=== PATIENT | male | born 1990 | race Caucasian/White ===

== ENCOUNTER 2017-09-19 09:11 | Day surgery (SDC) | payer BC, OTHER ==
--- NOTE | 2017-09-19 09:47 | EDM.PDOC ---
ED HPI GENERAL MEDICAL PROBLEM - General Chief Complaint: Abdominal Pain Stated Complaint: HERNIA SENT BY WASTA Time Seen by Provider: 09/19/17 09:45 Source of Information: Reports: Patient History Limitations: Reports: No Limitations - History of Present Illness INITIAL COMMENTS - FREE TEXT/NARRATIVE: 27-year-old male presents presents to the ED with persistent abdominal pain that started 3 days ago. States is getting worse. He was seen to the walk-in clinic at [facility] last evening and an ultrasound of his umbilicus was performed. Addended identified tissue incarcerated within an umbilical hernia. is no previous abdominal surgeries. He was thus sent to the ED for further evaluation of possible incarcerated tissue in the hernia. He has no nausea or vomiting. States him putting this morning only. Bowel function has been normal without any blood. He is otherwise in good health. Onset: Gradual Onset Date: 09/17/17 Duration: Hour(s): Location: Reports: Abdomen (Umbilicus superior aspect) Quality: Reports: Ache, Sharp, Stabbing, Other Severity: Moderate (Worsens when he stands fully erect. 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 Denies : Bloody Stool, Hematemesis, Hematochezia, Nausea, Stool Incontinence, Vomiting : Reports: No Symptoms Musculoskeletal: Reports: No Symptoms Skin: Reports: No Symptoms Neurological: Reports: No Symptoms Psychiatric: Reports: No Symptoms Hematologic/Lymphatic: Reports: No Symptoms Immunologic: Reports: No Symptoms ED EXAM, GI/ABD - Physical Exam Exam: See Below Exam Limited By: No Limitations General Appearance: Alert, WD/WN, No Apparent Distress Eyes: Bilateral: Normal Appearance Head: Atraumatic, Normocephalic Neck: Normal Inspection, Supple, Non-Tender, Full Range of Motion. No: Lymphadenopathy (L), Lymphadenopathy (R) Respiratory/Chest: No Respiratory Distress, Lungs Clear, Normal Breath Sounds Cardiovascular: Normal Peripheral Pulses, Regular Rate, Rhythm, No Edema, No Murmur GI/Abdominal Exam: Normal Bowel Sounds, Soft, Tender (Tenderness to the superior aspect of the umbilicus. No palpable mass but painful to cough.) (Male) Exam: Hernia (Appears to have a umbilical hernia superiorly.) Back Exam: Normal Inspection, Full Range of Motion. No: CVA Tenderness (L), CVA Tenderness (R) Extremities: Normal Inspection, Normal Range of Motion, Non-Tender, No Pedal Edema Neurological: Alert, Oriented, CN II-XII Intact, Normal Cognition Psychiatric: Normal Affect, Normal Mood Skin Exam: Warm, Dry, Intact, Normal Color Course - Vital Signs Last Recorded V/S: Last Vital Signs Temp 36.9 C 09/19/17 09:20 Pulse 78 09/19/17 09:20 Resp 18 09/19/17 09:20 BP 137/77 09/19/17 09:20 Pulse Ox 100 09/19/17 09:20 - Orders/Labs/Meds Orders: Active Orders 24 hr Category Date Time Status Admission Status [Patient Status] [ADT] Routine ADT 09/19/17 12:16 Active Patient to Empty Bladder [RC] ASDIRECTED Care 09/19/17 12:19 Active Verify Patient Consent Obtain [RC] ASDIRECTED Care 09/19/17 12:19 Active Nothing Per Oral Diet [DIET] Diet 09/19/17 Lunch Active Sodium Chloride 0.9% [Normal Saline] 1,000 ml Med 09/19/17 10:00 Active IV ASDIRECTED Sodium Chloride 0.9% [Normal Saline] 1,000 ml Med 09/19/17 12:30 Active IV ASDIRECTED Sodium Chloride 0.9% [Saline Flush] Med 09/19/17 09:56 Active 10 ml FLUSH ONETIME PRN cefOXitin [Mefoxin in Dextrose,Iso-Osm 1 GM/50 ML] 1 gm Med 09/19/17 12:19 Active Premix Bag 1 bag IV ONETIME Schedule Procedure [COMM] Stat Oth 09/19/17 12:16 Ordered Resuscitation Status Routine Resus Stat 09/19/17 12:19 Ordered Medication Orders Sodium Chloride (Normal Saline) 1,000 mls @ 125 mls/hr IV ASDIRECTED TAIWO Last Admin: 09/19/17 10:21 Dose: 125 mls/hr Cefoxitin Sodium 1 gm/ Premix 50 mls @ 100 mls/hr IV ONETIME ONE Stop: 09/19/17 12:48 Sodium Chloride (Normal Saline) 1,000 mls @ 125 mls/hr IV ASDIRECTED TAIWO Sodium Chloride (Saline Flush) 10 ml FLUSH ONETIME PRN PRN Reason: IV FLUSH Last Admin: 09/19/17 11:17 Dose: 10 ml Admin: 09/19/17 10:29 Dose: 10 ml Labs: Laboratory Tests 09/19/17 09/19/17 09/19/17 Range/Units 10:26 10:26 10:26 WBC 7.70 (4.23-9.07) K/mm3 RBC 5.99 (4.63-6.08) M/mm3 Hgb 16.6 (13.7-17.5) gm/L Hct 48.8 (40.1-51.0) % MCV 81.5 (79.0-92.2) fl MCH 27.7 (25.7-32.2) pg MCHC 34.0 (32.2-35.5) g/dl RDW Std Deviation 39.9 (35.1-43.9) fL Plt Count 260 (163-337) K/mm3 MPV 9.5 (9.4-12.3) fl Neutrophils % (Manual) 55 (40-60) % Band Neutrophils % 0 (0-10) % Lymphocytes % (Manual) 40 (20-40) % Atypical Lymphs % 0 % Monocytes % (Manual) 4 (2-10) % Eosinophils % (Manual) 1 (0.8-7.0) % Basophils % (Manual) 0 L (0.2-1.2) Platelet Estimate Adequate RBC Morph Comment Normal Sodium 140 (136-145) mEq/L Potassium 4.3 (3.5-5.1) mEq/L Chloride 103 (98-107) mEq/L Carbon Dioxide 28 (21-32) mEq/L Anion Gap 13.3 (5-15) BUN 22 H (7-18) mg/dL Creatinine 1.0 (0.7-1.3) mg/dL Est Cr Clr Drug Dosing 120.27 mL/min Estimated GFR (MDRD) > 60 (>60) mL/min BUN/Creatinine Ratio 22.0 H (14-18) Glucose 98 (74-106) mg/dL Lactic Acid 1.3 (0.4-2.0) mmol/L Calcium 9.4 (8.5-10.1) mg/dL Total Bilirubin 0.6 (0.2-1.0) mg/dL AST 22 (15-37) U/L ALT 49 (16-63) U/L Alkaline Phosphatase 57 (46-116) U/L C-Reactive Protein < 0.2 (<1.0) mg/dL Total Protein 8.0 (6.4-8.2) g/dl Albumin 4.4 (3.4-5.0) g/dl Globulin 3.6 gm/dL Albumin/Globulin Ratio 1.2 (1-2) Amylase 42 (25-115) U/L Meds: Medications Generic Name Dose Route Start Last Admin Trade Name Freq PRN Reason Stop Dose Admin Sodium Chloride 1,000 mls @ 125 mls/hr 09/19/17 10:00 09/19/17 10:21 Normal Saline IV 125 mls/hr ASDIRECTED TAIWO Administration Cefoxitin Sodium 1 gm/ Premix 50 mls @ 100 mls/hr 09/19/17 12:19 IV 09/19/17 12:48 ONETIME ONE Sodium Chloride 1,000 mls @ 125 mls/hr 09/19/17 12:30 Normal Saline IV ASDIRECTED TAIWO Sodium Chloride 10 ml 09/19/17 09:56 09/19/17 11:17 Saline Flush FLUSH 10 ml ONETIME PRN Administration IV FLUSH Discontinued Medications Generic Name Dose Route Start Last Admin Trade Name Melissa PRN Reason Stop Dose Admin Diatrizoate Meglum/Diatrizoate Sod 90 ml 09/19/17 09:56 09/19/17 11:17 Gastrografin 37% PO 09/19/17 09:57 90 ml ONETIME ONE Administration Iopamidol 150 ml 09/19/17 09:56 09/19/17 11:17 Isovue-300 (61%) IVPUSH 09/19/17 09:57 125 ml ONETIME ONE Administration - Radiology Interpretation Free Text/Narrative:: 27-year-old male presents to the ED with persistent umbilical pain for the last 2 and half days. Hurts to cough hurts to stretch in certain movements cause pain. He had ultrasound done to the [facility] walk-in side last night and it revealed tissue incarcerated within a umbilical hernia. He sent to the ED for further evaluation this morning as to whether not this could be bowel within his abdominal wall. He is very tender in the superior aspect of his umbilicus. No large masses appreciated. His appetite is good and his bowel function is normal. Offered him pain medicine he felt he did not need any at this time. Plan will be CT of the abdomen and pelvis with oral and IV contrast to identify what may be incarcerated in umbilical hernia. Routine preoperative labs done just in case he needs to go to the OR. - Re-Assessments/Exams Free Text/Narrative Re-Assessment/Exam: 09/19/17 11:45: CT of the abdomen can reveals a fatty incarcerated umbilical hernia with surrounding inflammatory fluid. This suggests necrosis of fatty tissue. This would be the reason that the pain is actually worsening and set of improving. I will therefore call surgeon Dr. Irwin whom is park recreation manager. Patient is willing to have surgery if deemed necessary. Dr. Irwin is currently in surgery but will see the patient once he is out of the OR. 09/19/17 12:14 Dr. Irwin came by and will see the patient in the the ED in consultation.White count is 7.70 with a 55% neutrophils and 0% band cells. Hemoglobin is 16.6 with hematocrit of 40.8. Chemistry is all normal. BUN is slightly elevated at 22. Glucose is 98. Lactic acid is 1.3. Amylase is 42. C- reactive protein is less than 0.2. Liver function is normal. 09/19/17 12:26 Dr. Irwin plans on taking him to the OR shortly. Departure - Departure Time of Disposition: 12:25 Disposition: DC/Tfer to [facility] Access [facility] Condition: Fair Clinical Impression: Incarcerated umbilical hernia - Discharge Information Referrals: PCP,None [Primary Care Provider] - Forms: ED Department Discharge - My Orders Last 24 Hours: My Active Orders 09/19/17 09:56 Sodium Chloride 0.9% [Saline Flush] 10 ml FLUSH ONETIME PRN 09/19/17 10:00 Sodium Chloride 0.9% [Normal Saline] 1,000 ml IV ASDIRECTED - Assessment/Plan Last 24 Hours: My Active Orders 09/19/17 09:56 Sodium Chloride 0.9% [Saline Flush] 10 ml FLUSH ONETIME PRN 09/19/17 10:00 Sodium Chloride 0.9% [Normal Saline] 1,000 ml IV ASDIRECTED
[2017-09-19] MEDS ORDERED: Diatrizoate Meglumine/Diatrizoate Sodium 37% 120 ML Bottle PO ONE (09:56)
[2017-09-19] MEDS ORDERED: Iopamidol 612 MG/ML 150 ML Bottle IVPUSH ONE (09:56)
[2017-09-19] MEDS ORDERED: Sodium Chloride 0.9% 1,000 ML IV SCH ×2 (10:00→12:30)
[2017-09-19] MEDS: Sodium Chloride 0.9% 10 ML Syringe FLUSH PRN ×2 (10:29→11:17)
--- NOTE | 2017-09-19 11:39 | CT ---
CT abdomen and pelvis Technique: Multiple axial sections were obtained from above the dome of the diaphragm inferiorly through the pubic symphysis. Intravenous and oral contrast was given. Comparison: Prior abdominal x-ray of 02/10/12. Findings: Small portion of the visualized lung bases are clear. Liver shows no focal parenchymal abnormality. Spleen appears within normal limits. Adrenal glands show no nodule. Pancreas is within normal limits. Gallbladder contains no calcified gallstones. Kidneys show no hydronephrosis or mass. Aorta shows no aneurysmal dilatation. Gallbladder contains no calcified gallstones. No retroperitoneal adenopathy or mesenteric abnormalities are seen. Small low-density abnormality is noted at the base of the umbilicus. Uncertain as to etiology but difficult to exclude a small abscess or hematoma. There is a small fat-containing umbilical hernia also being seen. This low-density finding measures about 1.8 cm. No mesenteric abnormalities are seen. No pelvic mass or adenopathy is noted. No free fluid or inflammatory change is seen within the abdomen or within the pelvis. Bone window settings were reviewed which appears within normal limits for the patient's age. Impression: 1. Small fat-containing umbilical hernia. Low-density abnormality at the base of the umbilicus which is of uncertain etiology but difficult to exclude abscess if patient has any infectious symptoms. Umbilical hematoma is also within the differential. 2. No additional abnormality is seen on CT study of the abdomen and pelvis. Diagnostic code #3
[2017-09-19] MEDS ORDERED: cefOXitin 1 GM in Premix Bag 1 BAG IV ONE (12:19)
--- NOTE | 2017-09-19 12:24 | PCM.HP ---
H&P History of Present Illness - General Date of Service: 09/19/17 Admit Problem/Dx: Admission Diagnosis/Problem Admission Diagnosis/Problem Hernia repair Source of Information: Patient History Limitations: Reports: No Limitations - History of Present Illness Initial Comments - Free Text/Narative: 27-year-old male presents with a 2-3 day history of persistent umbilical pain. The pain was worse with activity and increasingly uncomfortable. He presented to the emergency room earlier this morning for evaluation. A CT scan of his abdomen was performed and confirmed the presence of an incarcerated umbilical hernia containing fat. I was asked to see him for surgical consultation. He last ate around 5:30 this morning. Middle Abdomen Pain Score (Numeric/FACES): 5 - Related Data Allergies/Adverse Reactions: Allergies Allergy/AdvReac Type Severity Reaction Status Date / Time No Known Allergies Allergy Verified 09/19/17 09:17 Home Medications: Home Meds . 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.) H&P Review of Systems - Review of Systems: Review Of Systems: See Below Exam - Exam Exam: See Below - Vital Signs Vital Signs: Last Vital Signs Temp 36.9 C 09/19/17 09:20 Pulse 78 09/19/17 09:20 Resp 18 09/19/17 09:20 BP 137/77 09/19/17 09:20 Pulse Ox 100 09/19/17 09:20 Weight: 115.666 kg - Exam General: Alert, Oriented, Cooperative HEENT: EOMI, Hearing Intact Neck: Supple, Trachea Midline Lungs: Normal Respiratory Effort Cardiovascular: Regular Rate, Regular Rhythm GI/Abdominal Exam: Hernia (Umbilical erythema and tenderness to palpation with a palpable indurated herniated portion of fat) (Male) Exam: Deferred Rectal (Males) Exam: Deferred Extremities: Normal Inspection Neuro Extensive - Mental Status: Alert, Oriented x3 Psychiatric: Alert, Normal Affect - Patient Data Lab Results Last 24 hrs: Laboratory Results - last 24 hr 09/19/17 09/19/17 09/19/17 Range/Units 10:26 10:26 10:26 WBC 7.70 (4.23-9.07) K/mm3 RBC 5.99 (4.63-6.08) M/mm3 Hgb 16.6 (13.7-17.5) gm/L Hct 48.8 (40.1-51.0) % MCV 81.5 (79.0-92.2) fl MCH 27.7 (25.7-32.2) pg MCHC 34.0 (32.2-35.5) g/dl RDW Std Deviation 39.9 (35.1-43.9) fL Plt Count 260 (163-337) K/mm3 MPV 9.5 (9.4-12.3) fl Neutrophils % (Manual) 55 (40-60) % Band Neutrophils % 0 (0-10) % Lymphocytes % (Manual) 40 (20-40) % Atypical Lymphs % 0 % Monocytes % (Manual) 4 (2-10) % Eosinophils % (Manual) 1 (0.8-7.0) % Basophils % (Manual) 0 L (0.2-1.2) Platelet Estimate Adequate RBC Morph Comment Normal Sodium 140 (136-145) mEq/L Potassium 4.3 (3.5-5.1) mEq/L Chloride 103 (98-107) mEq/L Carbon Dioxide 28 (21-32) mEq/L Anion Gap 13.3 (5-15) BUN 22 H (7-18) mg/dL Creatinine 1.0 (0.7-1.3) mg/dL Est Cr Clr Drug Dosing 120.27 mL/min Estimated GFR (MDRD) > 60 (>60) mL/min BUN/Creatinine Ratio 22.0 H (14-18) Glucose 98 (74-106) mg/dL Lactic Acid 1.3 (0.4-2.0) mmol/L Calcium 9.4 (8.5-10.1) mg/dL Total Bilirubin 0.6 (0.2-1.0) mg/dL AST 22 (15-37) U/L ALT 49 (16-63) U/L Alkaline Phosphatase 57 (46-116) U/L C-Reactive Protein < 0.2 (<1.0) mg/dL Total Protein 8.0 (6.4-8.2) g/dl Albumin 4.4 (3.4-5.0) g/dl Globulin 3.6 gm/dL Albumin/Globulin Ratio 1.2 (1-2) Amylase 42 (25-115) U/L Result Diagrams: 09/19/17 10:26 09/19/17 10:26 *Q Meaningful Use (ADM) - VTE *Q VTE Criteria *Q: - Stroke *Q Stroke Criteria *Q: - AMI *Q AMI Criteria *Q: - Problem List (1) Incarcerated umbilical hernia SNOMED Code(s): 249478980 ICD Code: K42.0 - UMBILICAL HERNIA WITH OBSTRUCTION, WITHOUT GANGRENE Status: Acute Priority: High Current Visit: Yes Onset Date: ~09/16/17 Problem List Initiated/Reviewed/Updated: Yes Orders Last 24hrs: Active Orders 24 hr Category Date Time Status Admission Status [Patient Status] [ADT] Routine ADT 09/19/17 12:16 Active Patient to Empty Bladder [RC] ASDIRECTED Care 09/19/17 12:19 Ordered Verify Patient Consent Obtain [RC] ASDIRECTED Care 09/19/17 12:19 Ordered Nothing Per Oral Diet [DIET] Diet 09/19/17 Lunch Ordered Sodium Chloride 0.9% @ 125 MLS/HR (1000ml) Med 09/19/17 12:30 Ordered Sodium Chloride 0.9% [Normal Saline] 1,000 ml IV ASDIRECTED Sodium Chloride 0.9% [Normal Saline] 1,000 ml Med 09/19/17 10:00 Active IV ASDIRECTED Sodium Chloride 0.9% [Saline Flush] Med 09/19/17 09:56 Active 10 ml FLUSH ONETIME PRN cefOXitin [Mefoxin in Dextrose,Iso-Osm 1 GM/50 ML] 1 gm Med 09/19/17 12:19 Ordered Premix Bag 1 bag IV ONETIME Schedule Procedure [COMM] Stat Oth 09/19/17 12:16 Ordered Resuscitation Status Routine Resus Stat 09/19/17 12:19 Ordered Medication Orders Sodium Chloride (Normal Saline) 1,000 mls @ 125 mls/hr IV ASDIRECTED TAIWO Last Admin: 09/19/17 10:21 Dose: 125 mls/hr Cefoxitin Sodium 1 gm/ Premix 50 mls @ 100 mls/hr IV ONETIME ONE Stop: 09/19/17 12:48 Sodium Chloride (Normal Saline) 1,000 mls @ 125 mls/hr IV ASDIRECTED [facility] Sodium Chloride (Saline Flush) 10 ml FLUSH ONETIME PRN PRN Reason: IV FLUSH Last Admin: 09/19/17 11:17 Dose: 10 ml Admin: 09/19/17 10:29 Dose: 10 ml Assessment/Plan Comment:: Incarcerated umbilical hernia with ischemia. He needs open reduction and repair as soon as possible. I explained to the patient that it was highly unlikely that mesh would be needed. We also discussed bleeding infection and recurrence. He was happy to proceed after having all of his questions answered.
[2017-09-19] MEDS ORDERED: Bupivacaine 0.5%/EPINEPHrine 1:200,000 50 ML MDV ONE ×2 (12:43→13:24)
[2017-09-19] MEDS ORDERED: Lidocaine 1% with EPINEPHrine 1:100,000 20 ML MDV ONE ×2 (12:43→13:24)
--- NOTE | 2017-09-19 12:51 | PCM.PREANE ---
Preanesthetic Assessment - Anesthesia/Transfusion/Family Hx Anesthesia History: Prior Anesthesia Without Reaction Family History of Anesthesia Reaction: No Transfusion History: No Prior Transfusion(s) - Review of Systems General: No Symptoms Pulmonary: No Symptoms Cardiovascular: No Symptoms Gastrointestinal: Abdominal Pain Neurological: No Symptoms Other: Reports: None - Physical Assessment NPO Status Date: 09/19/17 NPO Status Time: 05:45 O2 Sat by Pulse Oximetry: 100 Respiratory Rate: 18 Vital Signs: Last Vital Signs Temp 36.9 C 09/19/17 09:20 Pulse 78 09/19/17 09:20 Resp 18 09/19/17 09:20 BP 137/77 09/19/17 09:20 Pulse Ox 100 09/19/17 09:20 Height: 1.8 m Weight: 115.666 kg ASA Class: 1 Mental Status: Alert & Oriented x3 Airway Class: Mallampati = 1 Dentition: Reports: Normal Dentition Thyro-Mental Finger Breadths: 3 Mouth Opening Finger Breadths: 3 ROM/Head Extension: Full Lungs: Clear to Auscultation, Normal Respiratory Effort Cardiovascular: Regular Rate, Regular Rhythm - Lab Values: Laboratory Last Values WBC 7.70 K/mm3 (4.23-9.07) 09/19/17 10:26 RBC 5.99 M/mm3 (4.63-6.08) 09/19/17 10:26 Hgb 16.6 gm/L (13.7-17.5) 09/19/17 10:26 Hct 48.8 % (40.1-51.0) 09/19/17 10:26 MCV 81.5 fl (79.0-92.2) 09/19/17 10:26 MCH 27.7 pg (25.7-32.2) 09/19/17 10:26 MCHC 34.0 g/dl (32.2-35.5) 09/19/17 10:26 RDW Std Deviation 39.9 fL (35.1-43.9) 09/19/17 10:26 Plt Count 260 K/mm3 (163-337) 09/19/17 10:26 MPV 9.5 fl (9.4-12.3) 09/19/17 10:26 Neutrophils % (Manual) 55 % (40-60) 09/19/17 10:26 Band Neutrophils % 0 % (0-10) 09/19/17 10:26 Lymphocytes % (Manual) 40 % (20-40) 09/19/17 10:26 Atypical Lymphs % 0 % 09/19/17 10:26 Monocytes % (Manual) 4 % (2-10) 09/19/17 10:26 Eosinophils % (Manual) 1 % (0.8-7.0) 09/19/17 10:26 Basophils % (Manual) 0 (0.2-1.2) L 09/19/17 10:26 Platelet Estimate Adequate 09/19/17 10:26 RBC Morph Comment Normal 09/19/17 10:26 Sodium 140 mEq/L (136-145) 09/19/17 10:26 Potassium 4.3 mEq/L (3.5-5.1) 09/19/17 10:26 Chloride 103 mEq/L (98-107) 09/19/17 10:26 Carbon Dioxide 28 mEq/L (21-32) 09/19/17 10:26 Anion Gap 13.3 (5-15) 09/19/17 10:26 BUN 22 mg/dL (7-18) H 09/19/17 10:26 Creatinine 1.0 mg/dL (0.7-1.3) 09/19/17 10:26 Est Cr Clr Drug Dosing 120.27 mL/min 09/19/17 10:26 Estimated GFR (MDRD) > 60 mL/min (>60) 09/19/17 10:26 BUN/Creatinine Ratio 22.0 (14-18) H 09/19/17 10:26 Glucose 98 mg/dL (74-106) 09/19/17 10:26 Lactic Acid 1.3 mmol/L (0.4-2.0) 09/19/17 10:26 Calcium 9.4 mg/dL (8.5-10.1) 09/19/17 10:26 Total Bilirubin 0.6 mg/dL (0.2-1.0) 09/19/17 10:26 AST 22 U/L (15-37) 09/19/17 10:26 ALT 49 U/L (16-63) 09/19/17 10:26 Alkaline Phosphatase 57 U/L (46-116) 09/19/17 10:26 C-Reactive Protein < 0.2 mg/dL (<1.0) 09/19/17 10:26 Total Protein 8.0 g/dl (6.4-8.2) 09/19/17 10:26 Albumin 4.4 g/dl (3.4-5.0) 09/19/17 10:26 Globulin 3.6 gm/dL 09/19/17 10:26 Albumin/Globulin Ratio 1.2 (1-2) 09/19/17 10:26 Amylase 42 U/L (25-115) 09/19/17 10:26 - Allergies Allergies/Adverse Reactions: Allergies Allergy/AdvReac Type Severity Reaction Status Date / Time No Known Allergies Allergy Verified 09/19/17 09:17 - Acknowledgements Anesthesia Type Planned: General Anesthesia Pt an Appropriate Candidate for the Planned Anesthesia: Yes Alternatives and Risks of Anesthesia Discussed w Pt/Guardian: Yes Pt/Guardian Understands and Agrees with Anesthesia Plan: Yes PreAnesthesia Questionnaire - Past Health History Medical/Surgical History: Denies Medical/Surgical History - Past Surgical History HEENT Surgical History: Reports: Tonsillectomy - SUBSTANCE USE Smoking Status *Q: Never Smoker - HOME MEDS Home Medications: Home Meds . [No Known Home Meds] 09/19/17 [History] - CURRENT (IN HOUSE) MEDS Current Meds: Current Medications Sodium Chloride (Normal Saline) 1,000 mls @ 125 mls/hr IV ASDIRECTED TAIWO Last Admin: 09/19/17 10:21 Dose: 125 mls/hr Sodium Chloride (Normal Saline) 1,000 mls @ 125 mls/hr IV ASDIRECTED [facility] Sodium Chloride (Saline Flush) 10 ml FLUSH ONETIME PRN PRN Reason: IV FLUSH Last Admin: 09/19/17 11:17 Dose: 10 ml Discontinued Medications Diatrizoate Meglum/Diatrizoate Sod (Gastrografin 37%) 90 ml PO ONETIME ONE Stop: 09/19/17 09:57 Last Admin: 09/19/17 11:17 Dose: 90 ml Cefoxitin Sodium 1 gm/ Premix 50 mls @ 100 mls/hr IV ONETIME ONE Stop: 09/19/17 12:48 Last Admin: 09/19/17 12:40 Dose: 100 mls/hr Iopamidol (Isovue-300 (61%)) 150 ml IVPUSH ONETIME ONE Stop: 09/19/17 09:57 Last Admin: 09/19/17 11:17 Dose: 125 ml
[2017-09-19] MEDS ORDERED: Ondansetron 4 MG/2 ML SDV ONE (13:28)
[2017-09-19] MEDS ORDERED: Rocuronium 50 MG/5 ML Vial ONE (13:28)
[2017-09-19] MEDS ORDERED: Succinylcholine/Normal Saline 100 MG/5 ML Syringe ONE (13:28)
[2017-09-19] MEDS ORDERED: Lactated Ringers 1,000 ML ONE (13:28)
[2017-09-19] MEDS ORDERED: Propofol 200 MG/20 ML SDV ONE ×2 (13:28→14:10)
[2017-09-19] MEDS ORDERED: fentaNYL 250 MCG/5 ML SDV ONE (13:28)
[2017-09-19] MEDS ORDERED: Midazolam 1 MG/ML 2 ML SDV ONE (13:28)
[2017-09-19] MEDS ORDERED: Metoclopramide 10 MG/2 ML SDV ONE (13:31)
[2017-09-19] MEDS ORDERED: HYDROmorphone 1 MG/ML Syringe ONE ×2 (13:46→13:57)
[2017-09-19] MEDS ORDERED: diphenhydrAMINE 50 MG/ML SDV IVPUSH PRN (13:57)
[2017-09-19] MEDS ORDERED: HYDROmorphone 0.5 MG/0.5 ML Syringe IVPUSH PRN (13:57)
[2017-09-19] MEDS ORDERED: Meperidine PF 50 MG/ML Syringe IVPUSH PRN (13:57)
[2017-09-19] MEDS ORDERED: fentaNYL 100 MCG/2 ML SDV IVPUSH PRN (13:57)
[2017-09-19] MEDS ORDERED: Haloperidol Lactate 5 MG/ML SDV IVPUSH ONE (13:57)
[2017-09-19] MEDS ORDERED: Dexamethasone 4 MG/ML SDV ONE (13:57)
[2017-09-19] MEDS ORDERED: Ketorolac 30 MG/ML SDV ONE (14:32)
[2017-09-19] MEDS ORDERED: fentaNYL 100 MCG/2 ML SDV ONE (14:34)
--- NOTE | 2017-09-19 14:36 | PCM.OPNOTE ---
- General Post-Op/Procedure Note Date of Surgery/Procedure: 09/19/17 Operative Procedure(s): 1. Incision and drainage of a sebaceous umbilical cyst. 2. Umbilical hernia repair primary closure Findings: 1. 3 mL of yellow pus emanating from a skin cyst at the base of the umbilical skin. 2. 8mm defect containing herniated preperitoneal fat which was not ischemic or compromised in any way. Pre Op Diagnosis: Incarcerated umbilical hernia Post-Op Diagnosis: 1. Cutaneous umbilical abscess. 2. Small umbilical hernia Anesthesia Technique: General ET Tube, Local Primary Surgeon: Raymundo Irwin Pathology: Cultures EBL in mLs: 2 Complications: None Condition: Good Free Text/Narrative:: After adequate general endotracheal tube anesthesia was obtained the patient's abdomen was prepped and draped for an open umbilical hernia repair. During the prep process several cc of marly yellow pus flowed from the base of the umbilicus. Aerobic and anaerobic cultures were performed at this point. Local analgesia was given just above the umbilicus. A 15 blade was used to make a small curvilinear incision. The umbilical hernia was dissected away from the surrounding subcutaneous tissue with scissors. I the umbilical skin away from the very small umbilical hernia. The rest of the pus was aspirated. I irrigated out the entire field with 500 mL of saline. I cauterized the base of the umbilical skin then closed the opening with a 3-0 Vicryl. The small umbilical herniation which was most likely an incidental finding was reduced and I closed the very small defect with a [id number] Prolene. The umbilicus was attached to the midline fascia with a 3-0 Vicryl [id number]. A quarter-inch Roseann drain was placed from the base of the umbilical skin and secured to the abdominal skin with a 2-0 Prolene. 3-0 Vicryl was used to reapproximate the umbilicus. [place] were used to close the skin. Gauze and tape were used for the dressing. There were no complications.
[2017-09-19] MEDS ORDERED: Lidocaine 1% 6 ML ONE (14:44)
--- NOTE | 2017-09-19 14:48 | PCM.POSTAN ---
POST ANESTHESIA ASSESSMENT - MENTAL STATUS Mental Status: Alert, Oriented - VITAL SIGNS Pulse Rate: 102 SaO2: 98 Resp Rate: 17 Blood Pressure: 120/79 Temperature: 36.9 C - RESPIRATORY Respiratory Status: Respiratory Rate WNL, Airway Patent, O2 Saturation Stable, Supplemental Oxygen - CARDIOVASCULAR CV Status: Pulse Rate WNL, Blood Pressure Stable - GASTROINTESTINAL GI Status: No Symptoms - PAIN Pain Score: 0 - POST OP HYDRATION Hydration Status: Adequate & Stable
== END 2017-09-19 17:38 | disposition home or self-care (01) ==
LOC: JD.ED 09:11 → JD.SDS 13:07
PROVIDERS: ATTEND Surgery
DX: K42.0 Umbilical hernia with obstruction, without gangrene (principal); L02.216 Cutaneous abscess of umbilicus; Z90.89 Acquired absence of other organs
CPT/HCPCS: 10060; 36415; 49585; 74177; 80053; 82150; 83605; 85025; 86140; 87075; 87205; 96360; 96361; 99285; J0330; J0694; J1100; J1170; J1885; J2250; J2405; J3010; J7040; J7050; J7120; Q9963; Q9967; 00830; 87076; 87181; 99284; J2001; J2704; J2765

== ENCOUNTER 2017-10-28 22:26 | Emergency (ER) | payer OTHER ==
--- NOTE | 2017-10-28 23:05 | EDM.PDOC ---
ED HPI GENERAL MEDICAL PROBLEM - General Chief Complaint: Chest Pain Stated Complaint: CHEST PAIN Time Seen by Provider: 10/28/17 23:04 Source of Information: Reports: Patient History Limitations: Reports: No Limitations - History of Present Illness INITIAL COMMENTS - FREE TEXT/NARRATIVE: 27-year-old male presents to the ED after developing transient left upper anterior chest pain which was fairly sharp and stabbing and radiated into his left axilla. States it lasted less than 15 seconds. However after a period of time it became apparent that he's been expressing similar type pains for the better part of 10 days. No associated fever cough shortness of breath. No travel history that would put him at risk of DVT. No history of previous DVT he states he has not been working out with weights. 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 At the time my examination he seems quite tired. He is quite anxious as is his that he may have underlying heart disease since it runs in his family. He denies any fever or chills. No upper abdominal pain. Has been eating and drinking normal with no odynophagia. Is not prone to reflux disease per se. Tonight he took Aleve and feels that this helped relieve the pain. He has been undergoing frequent chiropractic manipulations over the last several weeks due to lots of aches and pains including his neck back and lower back and SI joints. He did have rib heads adjusted last sunday. Onset: Sudden Onset Date: 10/28/17 Onset Time: 22:00 Duration: Hour(s):, Intermittent (Has been sitting having similar type pains off and on for the last 1012 days. They are fleeting and come and go. ), Waxing/ Waning Location: Reports: Chest (Left anterior upper chest midclavicular line rating towards the left axilla) Quality: Reports: Sharp, Stabbing, Other (Pains are fleeting.) Severity: Moderate Improves with: Reports: None Worsens with: Reports: None Context: Reports: Other (To spontaneous occurrence of chest pains.). Denies: Activity, Exercise, Lifting, Sick Contact, Trauma Associated Symptoms: Reports: Chest Pain, Malaise, Other (Lots of aches and pains.). 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 Chest Pain Score (Numeric/FACES): 0 - Related Data Allergies Allergy/AdvReac Type Severity Reaction Status Date / Time No Known Allergies Allergy Verified 09/19/17 09:17 Home Meds: Home Meds Famotidine IV [Pepcid IV] 20 mg IV Q12HR #10 sdv 10/29/17 [Rx] Past Medical History - Past Health History Medical/Surgical History: Denies Medical/Surgical History Musculoskeletal History: Reports: Other (See Below) Other Musculoskeletal History: recent back injury - Past Surgical History HEENT Surgical History: Reports: Tonsillectomy GI Surgical History: Reports: Other (See Below) Other GI Surgeries/Procedures: umbilical hernia surgery Sep 19, 2017 Social & Family History - Tobacco Use Smoking Status *Q: Former Smoker Used Tobacco, but Quit: Yes Month Tobacco Last Used: 2 y rs - Caffeine Use Caffeine Use: Reports: Soda - Recreational Drug Use Recreational Drug Use: No - Living Situation & Occupation Living situation: Reports: Single 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 Denies : Fever, Chills, Weight Loss HEENT: Reports: No Symptoms. Denies: Hearing Loss, Nosebleed, Sinus Problem Respiratory: Reports: Pleuritic Chest Pain (Pleuritic-like chest pain left upper anterior chest). Denies: Shortness of Breath, Wheezing, Cough, Hemoptysis Cardiovascular: Reports: Chest Pain. Denies: Blood Pressure Problem (See history present illness), Claudication, Dyspnea on Exertion, Edema, Lightheadedness, Orthopnea, Palpitations, PND, Syncope, Other Endocrine: Reports: Fatigue GI/Abdominal: Reports: Decreased Appetite : Reports: No Symptoms Musculoskeletal: Reports: Neck Pain, Back Pain, Joint Pain, Other (Currently has lots of aches and pains. Having his neck rib heads low back and SI joints adjusted by chiropractor once or twice weekly last few weeks.) Skin: Reports: No Symptoms Neurological: Reports: No Symptoms (SI joints.) Psychiatric: Reports: No Symptoms Hematologic/Lymphatic: Reports: No Symptoms Immunologic: Reports: No Symptoms ED EXAM, GENERAL - Physical Exam Exam: See Below Exam Limited By: No Limitations General Appearance: Alert, WD/WN, Other (Appears tired.) Eye Exam: Bilateral Eye: Normal Inspection Throat/Mouth: Normal Inspection, Normal Lips, Normal Teeth, Normal Oropharynx, Normal Voice, Other Head: Atraumatic, Normocephalic (No signs of infection) Neck: Normal Inspection, Supple, Non-Tender, Full Range of Motion. No: Carotid Bruit, Lymphadenopathy (L), Lymphadenopathy (R), Thyromegaly Respiratory/Chest: Normal Breath Sounds, No Accessory Muscle Use, Chest Non- Tender, Respiratory Distress (Mild tachypnea at rest 20/m. O2 sats 99% on room air.), Other (I could not elucidate any chest pain tenderness on palpation of the ribs or pectoralis major muscle. There was no) Cardiovascular: Normal Peripheral Pulses, Regular Rate, Rhythm, No Edema, No Gallop, No Murmur Peripheral Pulses: 3+: Carotid (L), Carotid (R), Posterior Tibial (L), Posterior Tibial (R), Dorsalis Pedis (L), Dorsalis Pedis (R) GI/Abdominal: Normal Bowel Sounds, Soft, Non-Tender, No Organomegaly, No Abnormal Bruit, No Mass, Pelvis Stable Back Exam: Normal Inspection, Decreased Range of Motion. No: CVA Tenderness (L) , CVA Tenderness (R) Extremities: Normal Inspection, Normal Range of Motion, Non-Tender, No Pedal Edema Neurological: Alert, Oriented, CN II-XII Intact (Stiff and sore in his lower back.), Normal Cognition, Normal Gait, No Motor/Sensory Deficits Psychiatric: Normal Affect, Other (Appears very tired.) Skin Exam: Warm, Dry, Intact, Normal Color, No Rash EKG INTERPRETATION EKG Date: 10/28/17 Time: 22:47 Rhythm: Other Rate (Beats/Min): 93 [place]: LAD-Left [place] Deviation (Left axis deviation of -52. Left anterior fascicular block pattern.) P-Wave: Present QRS: Other (Incomplete right bundle branch block. There is early R-wave transition) ST-T: Other (No signs of ischemia. There is a diffuse early repolarization pattern. T-wave flattening in lead 3.) QT: Normal Course - Vital Signs Last Recorded V/S: Last Vital Signs Temp 36.8 C 10/28/17 22:35 Pulse 87 10/28/17 22:35 Resp 20 10/28/17 22:35 BP 150/82 H 10/28/17 22:35 Pulse Ox 99 10/28/17 22:35 - Orders/Labs/Meds Orders: Active Orders 24 hr Category Date Time Status EKG Documentation Completion [RC] ASDIRECTED Care 10/28/17 22:47 Active Chest 2V [CR] Stat Exams 10/28/17 23:04 Taken EKG 12 Lead [EK] Stat Ther 10/28/17 22:47 Ordered Labs: Laboratory Tests 10/29/17 10/29/17 10/29/17 Range/Units 00:54 00:54 00:54 WBC 8.96 (4.23-9.07) K/mm3 RBC 5.40 (4.63-6.08) M/mm3 Hgb 15.0 (13.7-17.5) gm/L Hct 44.4 (40.1-51.0) % MCV 82.2 (79.0-92.2) fl MCH 27.8 (25.7-32.2) pg MCHC 33.8 (32.2-35.5) g/dl RDW Std Deviation 40.1 (35.1-43.9) fL Plt Count 233 (163-337) K/mm3 MPV 9.4 (9.4-12.3) fl Neutrophils % (Manual) 66 H (40-60) % Band Neutrophils % 0 (0-10) % Lymphocytes % (Manual) 28 (20-40) % Atypical Lymphs % 1 % Monocytes % (Manual) 4 (2-10) % Eosinophils % (Manual) 0 L (0.8-7.0) % Basophils % (Manual) 1 (0.2-1.2) Platelet Estimate Adequate Plt Morphology Comment Normal RBC Morph Comment Normal D-Dimer, Quantitative < 0.19 L (0.19-0.59) mg/L Sodium 142 (136-145) mEq/L Potassium 3.9 (3.5-5.1) mEq/L Chloride 106 (98-107) mEq/L Carbon Dioxide 25 (21-32) mEq/L Anion Gap 14.9 (5-15) BUN 19 H (7-18) mg/dL Creatinine 0.9 (0.7-1.3) mg/dL Est Cr Clr Drug Dosing 133.63 mL/min Estimated GFR (MDRD) > 60 (>60) mL/min BUN/Creatinine Ratio 21.1 H (14-18) Glucose 111 H (74-106) mg/dL Calcium 8.7 (8.5-10.1) mg/dL Total Bilirubin 0.5 (0.2-1.0) mg/dL AST 16 (15-37) U/L ALT 35 (16-63) U/L Alkaline Phosphatase 72 (46-116) U/L CK-MB (CK-2) 1.1 (0-3.6) ng/ml Troponin I < 0.017 (0.00-0.056) ng/mL C-Reactive Protein < 0.2 (<1.0) mg/dL Total Protein 6.9 (6.4-8.2) g/dl Albumin 4.1 (3.4-5.0) g/dl Globulin 2.8 gm/dL Albumin/Globulin Ratio 1.5 (1-2) Meds: Medications Discontinued Medications Generic Name Dose Route Start Last Admin Trade Name Freq PRN Reason Stop Dose Admin Famotidine 20 mg 10/29/17 01:40 10/29/17 01:59 Pepcid PO 10/29/17 01:41 20 mg ONETIME ONE Administration Ondansetron HCl 4 mg 10/29/17 01:41 10/29/17 01:59 Zofran Odt PO 10/29/17 01:42 4 mg ONETIME ONE Administration Pantoprazole Sodium 40 mg 10/29/17 01:42 10/29/17 01:59 Protonix PO 10/29/17 01:43 40 mg ONETIME ONE Administration - Radiology Interpretation Free Text/Narrative:: 27-year-old male attends the ED with a history of fleeting or transient left upper anterior chest wall pain. Pain wish fairly sharp and stabbing and radiated towards the left axilla. States it lasted less than 15 seconds. States then it leaves him with a dull aching discomfort. For this he took Aleve about an hour later it seemed to be gone. By history is been expressing similar type pains for the better part of 1012 days. No associated cough or sputum production. No fever chills or night sweats. She came to make sure that it was not his heart. He has no history of previous DVT and no history that would suggest involvement of DVT. Examination I could not elicit any chest wall pain could very 2 to both lung vigil with no adventitial sounds appreciated. Heart was sinus with no murmurs. ECG done by triage nurse shows no signs of ischemia. He does have early R-wave transition and incomplete right heart block. Plan two- view chest x-ray to be done. If this is negative will pursue labs - Re-Assessments/Exams Free Text/Narrative Re-Assessment/Exam: 10/29/17 01:29: two-view chest x-ray is within normal limits. 10/29/17: White count is 8.96 with 66% neutrophils and no bands. Hemoglobin is 15.0 with hematocrit of 44.4. Platelet count is normal at 233,000. D-dimer was less than 0.19. Sodium 142 potassium 3.9 chloride 16 bicarbonate 25. Anion gap is 14.9. BUNs 19. Creatinine normal at 0.9. GFR greater than 60. Glucose is 111. Calcium normal at 8.7. Bilirubin 0.5. AST 16 ALT 35. Alkaline phosphatase is normal at 72. CK-MB fraction 1.1C troponin I is less than 0.017. C-reactive protein less than 0.2. Patient so advised of the findings with normal labs. There is no sign of cardiac or lung involvement in his chest pain. Chest pain is chest wall in origin or neurogenic. It is fleeting sharp and stabbing and spastic in nature. Departure - Departure Time of Disposition: 01:55 Disposition: Home, Self-Care 01 Condition: Fair Clinical Impression: Non-cardiac chest pain, Anterior chest wall pain Prescriptions: Famotidine IV [Pepcid IV] 20 mg IV Q12HR #10 sdv Instructions: Gastritis, Adult, [id number] Referrals: PCP,Not In Area [Primary Care Provider] - Forms: ED Department Discharge, ED Return to Work/School Form Additional Instructions: Evaluation the emergent tonight in regards to development of left upper anterior chest pain which was sharp and stabbing and fleeting rating towards the left armpit. By history this is been happening intermittently for the last week or perhaps even 10 days. No associated cough fever chills or recent upper respiratory tract infections. Chest x-ray two-view did not reveal any signs of inflammation of the ribs or the lung lining or the lung itself. Heart shadow is within normal limits. Echocardiogram did not show any signs of heart attack or what we call ischemia. Lab work was done and it reveals normal cardiac markers with no signs of heart involvement in your chest wall pain over the last week. A d-dimer was also negative which looks for blood clots in the lungs and it also looks back over the last several days or week. Arcus for inflammation also proved to be negative. Therefore chest pain is of benign cause. It does not appear to be appear to be heart or lung related appears to be coming from chest wall with spasm of muscles in between the ribs or inflammation of the nerve that travels along the bottom of the rib from the spine. It is therefore conservative as this tends to go away with time but can often last 3-5 weeks when the cause is viral such as from coxsackievirus or echovirus. It may or may not be related to recent manipulation of rib heads in your upper back by the chiropractor. Treatment is similar to what you did tonight in terms of use of anti-inflammatory on an as-needed basis such as Motrin 600 mg or Aleve 2 tablets every 8 hours if needed. - My Orders Last 24 Hours: My Active Orders 10/28/17 22:47 EKG Documentation Completion [RC] ASDIRECTED EKG 12 Lead [EK] Stat 10/28/17 23:04 Chest 2V [CR] Stat - Assessment/Plan Last 24 Hours: My Active Orders 10/28/17 22:47 EKG Documentation Completion [RC] ASDIRECTED EKG 12 Lead [EK] Stat 10/28/17 23:04 Chest 2V [CR] Stat
[2017-10-29] MEDS ORDERED: Famotidine 20 MG Tab PO ONE (01:40)
[2017-10-29] MEDS ORDERED: Ondansetron 4 MG Tab.DIS PO ONE (01:41)
[2017-10-29] MEDS ORDERED: Pantoprazole 40 MG Tab.CR PO ONE (01:42)
--- NOTE | 2017-10-29 07:57 | CR ---
Chest: Two views of the chest were obtained. Comparison: No prior chest x-ray. Heart size and mediastinum are normal. Lungs are clear. Bony structures appear within normal limits for the patient's age. Impression: 1. Nothing acute is seen on two-view chest x-ray. Diagnostic code #1
== END 2017-10-29 02:23 | disposition home or self-care (01) ==
LOC: JD.ED 22:26
DX: R07.89 Other chest pain (principal); Z87.891 Personal history of nicotine dependence
CPT/HCPCS: 36415; 71046; 80053; 82553; 84484; 85025; 85379; 86140; 93005; 99285; A9270; 93010; 99284-25